=== PATIENT | male | born 1980 | race Caucasian/White ===

== ENCOUNTER 2017-02-13 10:02 | Emergency (ER) | payer OTHER ==
--- NOTE | 2017-02-13 10:28 | UC ---
HPI Wound/Suture Re-check - HPI Summary HPI Summary: Patient was seen in the [facility] ER 3 days ago, for lacerations to the 2nd and 3rd finger of the left hand. the 2nd finger has some slough and not approximating well. the third finger is healing without difficulty. - History Of Current Complaint Chief Complaint: UCUpperExtremity Stated Complaint: LEFT HAND RECHECK WC Time Seen by Provider: 02/13/17 10:21 Hx Obtained From: Patient Onset/Duration: Sudden Onset, Lasting Days Severity: Mild - Allergies/Home Medications Allergies/Adverse Reactions: Allergies Allergy/AdvReac Type Severity Reaction Status Date / Time No Known Allergies Allergy Verified 02/13/17 10:24 Home Medications: Home Medications Cephalexin CAP* [Keflex 250 CAP*] 1 tab BID 02/13/17 [History Confirmed 02/13/17 ] PMH/Surg Hx/FS Hx/Imm Hx Previously Healthy: Yes Respiratory History: Asthma - Surgical History Surgical History: None - Family History Known Family History: Positive: Hypertension Review of Systems Constitutional: Negative Skin: Negative, Other - 2 laceration Eyes: Negative ENT: Negative Respiratory: Negative Cardiovascular: Negative Gastrointestinal: Negative Genitourinary: Negative Motor: Negative Neurovascular: Negative Musculoskeletal: Negative Neurological: Negative Psychological: Negative All Other Systems Reviewed And Are Negative: Yes Physical Exam Triage Information Reviewed: Yes Appearance: Well-Appearing, Well-Nourished, Pain Distress Vital Signs Reviewed: Yes Eye Exam: Normal Eyes: Positive: Conjunctiva Clear ENT Exam: Normal ENT: Positive: Hearing grossly normal, Pharynx normal, TMs normal Dental Exam: Normal Neck exam: Normal Respiratory Exam: Normal Cardiovascular Exam: Normal Cardiovascular: Positive: RRR, No Murmur, Pulses Normal Abdominal Exam: Normal Abdomen Description: Positive: Nontender, No Organomegaly, Soft Bowel Sounds: Positive: Present Musculoskeletal Exam: Normal Neurological Exam: Normal Psychological Exam: Normal Skin: Positive: Other - lac on 2nd left finger, sutured and lateral aspect not adhereing well. lac on 3rd left finger sutured well approximated, healing well Course/Dx - Course Course Of Treatment: hx obtained, exam performed ,meds reviewed, finger cleansed , wounds bandaged, care instructions given, return for removal in 5-7 days - Differential Dx - Laceration/Wound Provider Diagnoses: wound recheck Discharge - Discharge Plan Condition: Stable Disposition: HOME Patient Education Materials: Care For Your Stitches (ED) Additional Instructions: 1. keep the area covered while working 2. uncover at rest and let it dry out, 3. stop using the bacitracin and follow up with any sign of infection.
[2017-02-13 10:39] VITALS: BP 117/76
== END 2017-02-13 10:49 | disposition home or self-care (01) ==
LOC: UCCORT 10:02
DX: T81.33XA Disruption of traumatic injury wound repair, initial encounter (principal); Y83.8 Other surgical procedures as the cause of abnormal reaction of the patient, or of later complication, without mention of misadventure at the time of the procedure
CPT/HCPCS: 99202; G0463

== ENCOUNTER 2017-02-18 07:32 | Emergency (ER) | payer OTHER ==
[2017-02-18 07:39] VITALS: BP 123/70
--- NOTE | 2017-02-18 07:51 | UC ---
HPI Wound/Suture Re-check - HPI Summary HPI Summary: PT SUSTAINED INJURY TO LEFT 2ND AND 3RD FINGERS ON 02/10/17 AND HAD SUTURES PLACED IN [facility] ER. HERE FOR SUTURE REMOVAL. WOUNDS ARE HEALING WELL. NO DRAINAGE , REDNESS OR TENDERNESS. NO FEVER. - History Of Current Complaint Chief Complaint: UCUpperExtremity Stated Complaint: REMOVE STITCHES Time Seen by Provider: 02/18/17 07:41 Hx Obtained From: Patient Severity: Mild Pain Intensity: 0 Pain Scale Used: 0-10 Numeric - Allergies/Home Medications Allergies/Adverse Reactions: Allergies Allergy/AdvReac Type Severity Reaction Status Date / Time No Known Allergies Allergy Verified 02/18/17 07:38 Home Medications: Home Medications NK [No Home Medications Reported] 02/18/17 [History Confirmed 02/18/17] PMH/Surg Hx/FS Hx/Imm Hx Previously Healthy: Yes - Surgical History Surgical History: None - Family History Known Family History: Positive: Hypertension - Social History Alcohol Use: Rare Substance Use Type: None Smoking Status (MU): Current Every Day Smoker Amount Used/How Often: 1/2 ppd - Immunization History Most Recent Tetanus Shot: 02/10/17 Review of Systems Constitutional: Negative Skin: Other - SUTURES Respiratory: Negative Cardiovascular: Negative Gastrointestinal: Negative All Other Systems Reviewed And Are Negative: Yes Physical Exam Triage Information Reviewed: Yes Appearance: Well-Appearing, No Pain Distress, Well-Nourished Vital Signs: Initial Vital Signs Temp 98.6 F 02/18/17 07:33 Pulse 60 02/18/17 07:33 Resp 14 02/18/17 07:33 BP 123/70 02/18/17 07:33 Pulse Ox 99 02/18/17 07:33 Vital Signs Reviewed: Yes Eyes: Positive: Conjunctiva Clear ENT: Positive: Hearing grossly normal Neck: Positive: Supple Respiratory: Positive: No respiratory distress, No accessory muscle use Cardiovascular: Positive: Pulses Normal Abdomen Description: Positive: Soft Musculoskeletal: Positive: No Edema Neurological: Positive: Alert Psychological: Positive: Age Appropriate Behavior Skin: Positive: Other - WOUNDS ON LEFT 2ND AND 3RD FINGERS HEALING WELL. SUTURES IN PLACE. NO DRAINAGE, ERYTHEMA OR TENDERNESS.. Negative: rashes Course/Dx - Course Course Of Treatment: 7 SUTURES REMOVED LEFT INDEX FINGER AND 2 SUTURES REMOVED LEFT 3RD FINGER - Differential Dx - Laceration/Wound Provider Diagnoses: SUTURE REMOVAL Discharge - Discharge Plan Condition: Stable Disposition: HOME Patient Education Materials: Stitches Removal (ED) Referrals: No Primary Care Phys,NOPCP [Primary Care Provider] - Additional Instructions: BE CAREFUL WITH YOUR FINGERS UNTIL THE WOUNDS ARE 100% HEALED THE SKIN IS STILL WEAK AND CAN OPEN UP IF TOO MUCH STRAIN IS PLACED ON THEM. CALL THE NUMBER BELOW FOR ASSISTANCE IN ESTABLISHING WITH A PCP An additional resource available to assist in finding the appropriate physician for your health care needs is the [facility] ([place]). You may contact them by calling [phone].
== END 2017-02-18 07:58 | disposition home or self-care (01) ==
LOC: UCCORT 07:32
DX: S61.211D Laceration without foreign body of left index finger without damage to nail, subsequent encounter (principal); S61.213D Laceration without foreign body of left middle finger without damage to nail, subsequent encounter; X58.XXXD Exposure to other specified factors, subsequent encounter; Y92.9 Unspecified place or not applicable; F17.210 Nicotine dependence, cigarettes, uncomplicated
CPT/HCPCS: 99211; G0463

== ENCOUNTER 2018-07-26 08:27 | Emergency (ER) | payer BC, OTHER ==
[2018-07-26 08:58] VITALS: BP 122/88
[2018-07-26] MEDS ORDERED: Ketorolac INJ* 60 MG/2 ML VIAL IM ONE (10:33)
--- NOTE | 2018-07-26 10:42 | UC ---
Back Pain HPI - HPI Summary HPI Summary: Pt c/o sudden onset of left lower back pain that radiates down left posterior leg. Pt states it worsens with prolonged sitting and laying down. Pt denies loss of bowel or bladder control. Denies injury, denies numbness or loss of ROM - History of Current Complaint Chief Complaint: UCBackPain Stated Complaint: BACK PAIN RADIATING TO FOOT Time Seen by Provider: 07/26/18 10:26 Hx Obtained From: Patient Onset/Duration: Sudden Onset, Lasting Weeks, Still Present, Worse Since - onset Timing: Constant Severity Initially: Mild Severity Currently: Moderate Pain Intensity: 1 Back Pain: Is Discrete @ - left lower back/buttock, Radiates To - left posterior leg Character: Dull, Aching, Burning Aggravating Factor(s): Movement Alleviating Factor(s): Nothing Associated Signs And Symptoms: Positive: Weakness - Risk Factors AAA Risk Factors: Negative TAD Risk Factors: Negative Cauda Equina Risk Factors: Negative Epidural Abscess Risk Factors: Negative - Allergies/Home Medications Allergies/Adverse Reactions: Allergies Allergy/AdvReac Type Severity Reaction Status Date / Time No Known Allergies Allergy Verified 07/26/18 08:55 PMH/Surg Hx/FS Hx/Imm Hx Previously Healthy: Yes - Surgical History Surgical History: None - Family History Known Family History: Positive: Hypertension - Social History Occupation: Employed Full-time Lives: With Family Alcohol Use: Rare Substance Use Type: None Smoking Status (MU): Heavy Every Day Tobacco Smoker Amount Used/How Often: 1/2 PPD Length of Time of Smoking/Using Tobacco: Since Age 14 Have You Smoked in the Last Year: Yes - Immunization History Most Recent Tetanus Shot: 02/10/17 Review of Systems All Other Systems Reviewed And Are Negative: Yes Constitutional: Positive: Negative Skin: Positive: Negative Eyes: Positive: Negative ENT: Positive: Negative Respiratory: Positive: Negative Cardiovascular: Positive: Negative Gastrointestinal: Positive: Negative Genitourinary: Positive: Negative Motor: Positive: Negative Neurovascular: Positive: Negative Musculoskeletal: Positive: Arthralgia, Myalgia Neurological: Positive: Negative Psychological: Positive: Negative Is Patient Immunocompromised?: No Physical Exam Triage Information Reviewed: Yes Appearance: Pain Distress Vital Signs: Initial Vital Signs Temp 98.3 F 07/26/18 08:51 Pulse 72 07/26/18 08:51 Resp 18 07/26/18 08:51 BP 122/88 07/26/18 08:51 Pulse Ox 100 07/26/18 08:51 Vital Signs Reviewed: Yes Eye Exam: Normal ENT Exam: Normal Dental Exam: Normal Neck exam: Normal Respiratory: Positive: No respiratory distress Musculoskeletal Exam: Normal Musculoskeletal: Positive: Other: - point tenderness left mid buttock, Neurological Exam: Normal Psychological Exam: Normal Skin Exam: Normal Back Pain Course/Dx - Differential Dx/Diagnosis Differential Diagnosis/HQI/PQRI: Herniated Disc, Strain, Sprain Provider Diagnosis: Sciatica of left side Discharge - Sign-Out/Discharge Documenting (check all that apply): Patient Departure All imaging exams completed and their final reports reviewed: No Studies - Discharge Plan Condition: Stable Disposition: HOME Prescriptions: Cyclobenzaprine TAB* [Flexeril 10 MG TAB*] 10 mg PO Q8H PRN #15 tab PRN Reason: Pain Ibuprofen TAB* [Motrin TAB* 800 MG] 800 mg PO Q8H PRN #21 tab PRN Reason: Pain predniSONE TAB* [Deltasone 10 MG TAB*] 30 mg PO DAILY #12 tab Patient Education Materials: Sciatica (ED), Lower Back Exercises (ED) Referrals: [facility] [Outside] - If Needed No Primary Care Phys,NOPCP [Primary Care Provider] - - Billing Disposition and Condition Condition: STABLE Disposition: Home - Attestation Statements Provider Attestation: Per institutional requirements, I have reviewed the chart, however, I was not consulted specifically or made aware of this patient by the midlevel provider. I did not personally evaluate, interact with , or disposition this patient.
== END 2018-07-26 10:45 | disposition home or self-care (01) ==
LOC: UCCORT 08:27
DX: M54.32 Sciatica, left side (principal); F17.210 Nicotine dependence, cigarettes, uncomplicated
CPT/HCPCS: 96372; 99212; G0463; J1885